=== PATIENT | female | born 1985 | race African-American/Black ===

== ENCOUNTER 2017-02-07 11:29 | Emergency (ER) | payer SELFPAY ==
[~2017-02-07] VITALS: Ht 165.1 cm; Wt 59.0 kg
[2017-02-07 11:43] VITALS: BP 111/77
[2017-02-07] MEDS ORDERED: NKM (11:47)
[2017-02-07] MEDS ORDERED: Tubing IV Cassette IV ONE (12:02)
[2017-02-07] MEDS ORDERED: Dicyclomine 10mg Cap ORAL ONE (12:30)
[2017-02-07 12:55] LABS: APPEARANCE,URINE SLIGHTLY CLOUDY; KETONES,URINE 1+ (NEGATIVE); LEUKOCYTE ESTERASE ,URINE 1+ (NEGATIVE); NITRITE,URINE NEGATIVE (NEGATIVE); PH,URINE 5 (4.5-8.0); PROTEIN,URINE 1+ (NEGATIVE); UROBILINOGEN,URINE 1 MG/DL (0.0-1.0)
[2017-02-07 13:13] LABS: BACTERIA,URINE FEW /HPF; MUCUS,URINE FEW /LPF (NONE/OCC); SQUAMOUS EPITHELIAL CELL,UR FEW /LPF (NONE/OCC)
--- NOTE | 2017-02-07 13:16 | Emergency Room Report ---
History of Present Illness General Chief Complaint: Abdominal Pain Source: Patient Present Illness HPI 31-year-old female presents to emergency Department complaining of abdominal pain with nausea and vomiting and diarrhea x5 days. Pt currently rates her pain as 5/10 in severity exacerbated by palpation of the LLQ. Patient denies ill contacts, patient states she just got back from a trip to [place]. Patient denies fevers or chills. denies blood in the vomit or stool patient reports pain is primarily left lower quadrant describes cramping in nature which is resolved temporarily after loose bowel movement. Patient denies at this time. Denies rashes, hematuria, frequency, dysuria. Denies CP, Palpitations, LOC, AMS, dizziness, Changes in Vision, Sensation, paresthesias, or a sudden severe headache. Allergies: Coded Allergies: No Known Allergies (Unverified , 02/07/17) Patient History Past Medical History: see triage record Past Surgical History: none Pertinent Family History: none Last Menstrual Period: 01/21/2017 Now: No Immunizations: UTD Reviewed Nursing Documentation: PMH: Agreed, PSxH: Agreed Nursing Documentation-PMH Past Medical History: No Stated History Review of Systems All Other Systems: negative except mentioned in HPI Physical Exam Vital Signs Date Time Temp Pulse Resp B/P Pulse Ox O2 Delivery O2 Flow Rate FiO2 02/07/17 11:43 98.1 70 16 111/77 99 Room Air Sp02 EP Interpretation: reviewed, normal General Appearance: no apparent distress, alert, GCS 15, non-toxic Head: normocephalic, atraumatic Eyes: bilateral eye PERRL, bilateral eye normal inspection ENT: hearing grossly normal, normal pharynx, no angioedema, normal voice Neck: full range of motion, supple/symm/no masses Respiratory: lungs clear, normal breath sounds, speaking full sentences Cardiovascular #1: regular rate, rhythm, no edema Gastrointestinal: normal bowel sounds, non tender, soft, no guarding, no rebound, other - Negative Stratton signs, Negative MacBurney's sign, TTP to the LLQ, no TTP to the RLQ or RUQ, No Peritoneal signs. Rectal: deferred Genitourinary: normal inspection, no CVA tenderness Musculoskeletal: back normal, gait/station normal, normal range of motion Neurologic: alert, oriented x3, responsive, motor strength/tone normal, sensory intact, speech normal Psychiatric: judgement/insight normal, memory normal, mood/affect normal, no suicidal/homicidal ideation Skin: normal color, no rash, warm/dry, well hydrated Lymphatic: no adenopathy Medical Decision Making PA Attestation Dr. Corbin is my supervising Physician whom patient management has been discussed with. Diagnostic Impression: Primary Impression: UTI (urinary tract infection) Qualified Codes: N30.00 - Acute cystitis without hematuria Additional Impression: Acute pancreatitis Qualified Codes: K85.90 - Acute pancreatitis without necrosis or infection, unspecified ER Course 31-year-old female presents to emergency Department complaining of abdominal pain with nausea and vomiting and diarrhea x5 days. Patient denies ill contacts, patient states she just got back from a trip to [place]. Patient denies fevers or chills. Denies blood in the vomit or stool patient reports pain is primarily left lower quadrant describes cramping in nature which is resolved temporarily after loose bowel movement. Patient denies at this time. Denies rashes, hematuria, frequency, dysuria. Ddx considered but are not limited to Diverticulitis, acute appy, diarrhea,UC, PUD, GE, pancreatitis, gallstone Vital signs: are WNL, pt. is afebrile H&PE are most consistent with possible gastritis, will r/o acute abdominal or infectious process with labs. ORDERS: CBC,: mild leukocytosis at 13.5k -CMP & Lipase: elevated Lipase 220, elevated ALT, and alk phos. -UA: consistent with UTI, wbc's and bacteria present. -Urine Hcg: Negative -ULTRASOUND: Abdominal Limited: normal sized liver, no obvious abscess, no gallstones or obstruction per preliminary radiology report. ED INTERVENTIONS: -- 1000NS,and - zofran 4mg. -20mg Bentyl PO - Pt temporarily placed as NPO Pt able to tolerate oral fluids, will d/c with anti-emetics and pain medications in addition to oral abx. d/w pt. follow up instructions and symptoms that would indicate prompt return to ED. DISCHARGE: At this time pt. is stable for d/c to home. Will provide printed patient care instructions, and any necessary prescriptions. Care plan and follow up instructions have been discussed with the patient prior to discharge. Labs Test 02/07/17 10:50 3/29/17 13:48 Urine Color Yellow Urine Appearance Slightly cloudy Urine pH 5 (4.5-8.0) Urine Specific [place] 1.025 (1.005-1.035) Urine Protein 1+ (NEGATIVE) Urine Glucose (UA) Negative (NEGATIVE) Urine Ketones 1+ (NEGATIVE) Urine Occult Blood 1+ (NEGATIVE) Urine Nitrite Negative (NEGATIVE) Urine Bilirubin Negative (NEGATIVE) Urine Urobilinogen 1 MG/DL (0.0-1.0) Urine Leukocyte Esterase 1+ (NEGATIVE) Urine RBC 2-4 /HPF (0 - 2) Urine WBC 5-10 /HPF (0 - 2) Urine Squamous Epithelial Cells Few /LPF (NONE/OCC) Urine Bacteria Few /HPF (NONE) Urine Mucus Few /LPF (NONE/OCC) Urine HCG, Qualitative Negative White Blood Count 13.5 K/UL (4.8-10.8) Red Blood Count 4.67 M/UL (4.20-5.40) Hemoglobin 14.6 G/DL (12.0-16.0) Hematocrit 44.7 % (37.0-47.0) Mean Corpuscular Volume 96 FL (80-99) Mean Corpuscular Hemoglobin 31.2 PG (27.0-31.0) Mean Corpuscular Hemoglobin Concent 32.6 G/DL (32.0-36.0) Red Cell Distribution Width 12.4 % (11.6-14.8) Platelet Count 257 K/UL (150-450) Mean Platelet Volume 8.0 FL (6.5-10.1) Neutrophils (%) (Auto) 79.6 % (45.0-75.0) Lymphocytes (%) (Auto) 12.2 % (20.0-45.0) Monocytes (%) (Auto) 4.8 % (1.0-10.0) Eosinophils (%) (Auto) 3.2 % (0.0-3.0) Basophils (%) (Auto) 0.3 % (0.0-2.0) Sodium Level 140 mEQ/L (135-145) Potassium Level 3.8 mEQ/L (3.4-4.9) Chloride Level 97 mEQ/L (98-107) Carbon Dioxide Level 25 mEQ/L (20-30) Anion Gap 18 (5-15) Blood Urea Nitrogen 8 mg/dL (7-23) Creatinine 0.8 mg/dL (0.5-0.9) Estimat Glomerular Filtration Rate > 60 mL/min (>60) Glucose Level 87 mg/dL (74-106) Calcium Level 9.1 mg/dL (8.6-10.2) Total Bilirubin 0.4 mg/dL (0.0-1.2) Aspartate Amino Transf (AST/SGOT) 36 U/L (5-40) Alanine Aminotransferase (ALT/SGPT) 45 U/L (3-33) Alkaline Phosphatase 220 U/L (35-104) Total Protein 7.1 g/dL (6.6-8.7) Albumin 4.3 g/dL (3.5-5.2) Globulin 2.8 g/dL Albumin/Globulin Ratio 1.5 (1.0-2.7) Lipase 121 U/L (< 60) Last Vital Signs Date Time Temp Pulse Resp B/P Pulse Ox O2 Delivery O2 Flow Rate FiO2 02/07/17 11:43 98.1 16 111/77 99 Room Air 02/07/17 11:43 70 Disposition: HOME, SELF-CARE Condition: Stable Scripts Ondansetron Odt* (ZOFRAN ODT*) 4 Mg Tab.rapdis 4 MG ORAL Q6H Y for Nausea & Vomiting, #30 TAB Prov: Mireille Tam P.A. 02/07/17 Hydrocodone Bit/Acetaminophen 5-325* (NORCO 5-325*) 1 Each Tablet 1 TAB ORAL Q6H Y for For Pain, #7 TAB 0 Refills Prov: Mireille Tam P.A. 02/07/17 Dicyclomine Hcl* (BENTYL*) 10 Mg Capsule 10 MG ORAL FOUR TIMES A DAY for 4 Days, #16 CAP Prov: Mireille Tam P.A. 02/07/17 Nitrofurantoin Monohyd/M-Cryst* (MACROBID 100 MG*) 100 Mg Capsule 100 MG ORAL EVERY 12 HOURS for 5 Days, #10 CAP Prov: Mireille Tam P.A. 02/07/17 Referrals: NOT CHOSEN IPA/,REFERRING (PCP) Patient Instructions: Acute Pancreatitis, [id number], Low-Fat Diet for Pancreatitis or Gallbladder Conditions, Urinary Tract Infection, [id number] Additional Instructions: Take medications as directed. Follow up with PCP in 3-5 days Return sooner to ED if new symptoms occur, or current symptoms become worse. Do not drink alcohol, drive, or operate heavy machinery while taking [place] as this may cause drowsiness. - Please note that this Emergency Department Report was dictated using [employer] presser technology software, occasionally this can lead to erroneous entry secondary to interpretation by the dictation equipment. Mireille Tam Feb 07, 2017 13:16
[2017-02-07 14:14] LABS: BASOPHILS % (AUTO) 0.3 % (0.0-2.0); EOSINOPHILS % (AUTO) 3.2 % (0.0-3.0); LYMPHOCYTES % (AUTO) 12.2 % (20.0-45.0); MEAN CORPUSCULAR HEMOGLOBIN 31.2 PG (27.0-31.0); MEAN CORPUSCULAR HGB CONC 32.6 G/DL (32.0-36.0); MEAN CORPUSCULAR VOLUME 96 FL (80-99); MONOCYTES % (AUTO) 4.8 % (1.0-10.0); NEUTROPHILS % (AUTO) 79.6 % (45.0-75.0); PLATELET COUNT 257 K/UL (150-450); RED BLOOD COUNT 4.67 M/UL (4.20-5.40); RED CELL DISTRIBUTION WIDTH 12.4 % (11.6-14.8); WHITE BLOOD COUNT 13.5 K/UL (4.8-10.8)
[2017-02-07 14:21] LABS: ALANINE AMINOTRANSFERASE 45 U/L (3-33); ALBUMIN/GLOBULIN RATIO 1.5 (1.0-2.7); ANION GAP 18 (5-15); ASPARTATE AMINO TRANSFERASE 36 U/L (5-40); CALCIUM 9.1 mg/dL (8.6-10.2); CARBON DIOXIDE 25 mEQ/L (20-30); CHLORIDE 97 mEQ/L (98-107); CREATININE 0.8 mg/dL (0.5-0.9); GLOMERULAR FILTRATION RATE > 60 mL/min (>60); HEMOLYSIS 3; LIPASE 121 U/L (< 60); POTASSIUM 3.8 mEQ/L (3.4-4.9); SODIUM 140 mEQ/L (135-145); TOTAL PROTEIN 7.1 g/dL (6.6-8.7)
[2017-02-07 15:30] VITALS: BP 110/65
[2017-02-07] MEDS ORDERED: NITROFURANTOIN100 M2 ORAL (17:24)
[2017-02-07] MEDS ORDERED: BENTYL10 MG ORAL (17:24)
[2017-02-07] MEDS ORDERED: NORCO 5-325 TA1 EACH ORAL (17:24)
[2017-02-07] MEDS ORDERED: ZOFRAN ODT4 MG ORAL (17:24)
[2017-02-07 17:32] VITALS: BP_SYST 101; BP_SYST 110; BP_DIAS 62; BP_DIAS 65
--- NOTE | 2017-02-08 08:54 | Diagnostic Imaging Report ---
Indication: Abdominal pain, nausea, vomiting x5 days Technique: Vogt-scale and duplex images of the upper abdomen were obtained Comparison: Findings: . Gallbladder is unremarkable, without stones, wall thickening, nor pericholecystic fluid. Sonographic Christianson's sign is negative. Common bile duct measures 4 mm in diameter. No intrahepatic biliary ductal dilatation. Liver demonstrates normal echogenicity, no focal abnormality. It is borderline enlarged. Portal vein and hepatic veins are patent.. Pancreas is unremarkable. Spleen is unremarkable. Left kidney measures 10.7 cm in length. Right kidney measures 10.2 cm length. Both kidneys demonstrate normal echogenicity. There is no hydronephrosis. No focal abnormality. Non-aneurysmal abdominal aorta. Impression: Borderline hepatomegaly Otherwise negative. No evidence of gallstones or dilated ducts
== END 2017-02-07 17:33 | disposition home or self-care (01) ==
LOC: EMR 12:10
DX: N30.00 Acute cystitis without hematuria (principal); K85.90 Acute pancreatitis without necrosis or infection, unspecified
CPT/HCPCS: 36415; 76700; 80053; 81003; 81025; 83690; 85025; 99284; J2405